=== PATIENT | female | born 1985 | race Hispanic/Latino ===

== ENCOUNTER 2022-05-16 20:51 | Emergency (ER) | payer SELFPAY ==
[~2022-05-16] VITALS: Ht 144.8 cm; Wt 63.0 kg
[~2022-05-16 20:51] MED LIST: PRENATAL1 TA1
[2022-05-16 21:13] VITALS: BP 127/83
[2022-05-16 21:30] VITALS: BP 120/84
[2022-05-16] MEDS ORDERED: BIRTH CONTROL PILL (21:52)
[2022-05-16 22:00] VITALS: BP 123/75
[2022-05-16 22:22] LABS: BASO% 0.2 % (0-3); EOS% 0.3 % (0-8); IMMATURE GRANULOCYTES 0.1 % (0.0-5.0); LYMPH% 16.4 % (15-41); MEAN CELL VOLUME 87.6 fL CALC (80.0-100.0); MEAN CORPUSCULAR HGB 29.8 pG CALC (26.0-32.0); MONO% 4.8 % (2-13); NEUT# 7.13 thou/uL (2.00-7.15); NEUT% 78.2 % (42-76); RED BLOOD COUNT 4.5 mill/uL (4.20-5.60); RED CELL DISTRI WIDTH 12.9 % (11.5-15.5)
[2022-05-16 22:23] LABS: HEMATOCRIT 39.4 % (37.0-47.0); HEMOGLOBIN 13.4 g/dl (12.0-16.0)
[2022-05-16 22:30] VITALS: BP 120/77
[2022-05-16 22:33] LABS: BILIRUBIN, TOTAL 0.5 mg/dL (0.02-1.3); BUN 13 mg/dL (7-17); BUN/CREATININE RATIO 23 (12-20 (CALC)); CARBON DIOXIDE 21 mmol/l (22-30); CHLORIDE 110 mmol/l (95-108); CREATININE 0.6 mg/dL (0.5-1.0); GFR FOR AFR.AMER. > 60 ML/MIN (>=60 (CALC)); GFR OTHER RACES > 60 ML/MIN (>=60 (CALC)); SGOT/AST 36 u/l (14-36); SODIUM 139 mmol/l (137-146); TOTAL PROTEIN 7.5 g/dL (6.3-8.2)
[2022-05-16 22:38] LABS: ALBUMIN 4.5 g/dL (3.2-5.0); ALKALINE PHOSPHATASE 94 u/l (38-126); ANION GAP 11 (6-22 (CALC)); POTASSIUM 3.4 mmol/l (3.5-5.1)
[2022-05-16 22:39] LABS: HCG SERUM/URINE (NEG/POS) NEGATIVE (NEGATIVE)
[2022-05-16 23:00] VITALS: BP 115/78
[2022-05-16 23:48] VITALS: BP 105/71
[2022-05-17 00:14] LABS: URINE BILIRUBIN - DIPSTICK NEGATIVE (NEGATIVE); URINE BLOOD DIPSTICK NEGATIVE (NEGATIVE); URINE COLOR YELLOW; URINE GLUCOSE - DIPSTICK NEGATIVE (NEGATIVE); URINE KETONE NEGATIVE (NEGATIVE); URINE LEUK ESTERASE MODERATE (NEGATIVE); URINE NITRITE - DIPSTICK NEGATIVE (Negative); URINE PH 6.5 (4.5-8.0); URINE PROTEIN - DIPSTICK NEGATIVE (NEG-TRACE); URINE SPECIFIC GRAVITY 1.015; URINE UROBILINOGEN - DIPSTICK 0.2 E.U./dL (0.2)
[2022-05-17 00:17] LABS: URINE BACTERIA MODERATE hpf; URINE EPITHELIAL CELLS MODERATE EPI/hpf (0-FEW)
[2022-05-17] MEDS ORDERED: KEFLEX500 MG PO (00:57)
[2022-05-17 01:01] VITALS: BP 119/78
[2022-05-17 01:02] VITALS: BP 119/78
== END 2022-05-17 01:27 | disposition home or self-care (01) | DRG 312 ==
LOC: ED 20:51
PROVIDERS: Emergency Medicine
DX: R55 Syncope and collapse (principal); N39.0 Urinary tract infection, site not specified